=== PATIENT | male | born 1970 | race Caucasian/White ===

== ENCOUNTER 2017-01-10 01:41 | Emergency (ER) | payer SELFPAY ==
[2017-01-10 02:42] LABS: CALCIUM 8.4 mg/dL (8.5-10.1); CARBON DIOXIDE 31.4 mmol/L (21-32); CHLORIDE SERUM 103 mmol/L (98-107); CREATININE SERUM 0.7 mg/dL (0.7-1.3); GFR1 > 60 mL/min; GLUCOSE SERUM 101 mg/dL (74-106); POTASSIUM SERUM 3.8 mmol/L (3.5-5.1); SODIUM SERUM 130 mmol/L (136-145)
[2017-01-10 02:47] LABS: ALKALINE PHOSPHATASE 63 U/L (46-116); ALT/SGPT 38 U/L (16-63); AST/SGOT 27 U/L (15-37); BILIRUBIN TOTAL 0.22 mg/dL (0.20-1.00); TOTAL PROTEIN, SERUM 6.3 g/dL (6.4-8.2)
[2017-01-10 02:48] LABS: ALBUMIN 3.2 g/dL (3.4-5.0)
[2017-01-10 02:58] LABS: BASOPHIL % 0.2 % (0-2); PLATELET COUNT 246 x10^3mcL (130-400)
[2017-01-10 05:53] VITALS: BP 100/61
== END 2017-01-10 05:53 | disposition home or self-care (01) ==
LOC: ED 01:41
PROVIDERS: Emergency Medicine
DX: R10.9 Unspecified abdominal pain (principal); R11.2 Nausea with vomiting, unspecified; R53.83 Other fatigue; M54.9 Dorsalgia, unspecified
CPT/HCPCS: J1170; J1200; J2765; J7030

== ENCOUNTER 2017-04-14 04:27 | Emergency (ER) | payer OTHER ==
[~2017-04-14] VITALS: Ht 180.3 cm; Wt 77.6 kg
[2017-04-14 04:42] VITALS: Ht 180.3 cm; Wt 77.6 kg
[2017-04-14 06:32] LABS: CALCIUM 8.7 mg/dL (8.5-10.1); CARBON DIOXIDE 26.3 mmol/L (21-32); CHLORIDE SERUM 107 mmol/L (98-107); CREATININE SERUM 0.8 mg/dL (0.7-1.3); GFR1 > 60 mL/min; GLUCOSE SERUM 85 mg/dL (74-106); POTASSIUM SERUM 4.3 mmol/L (3.5-5.1); SODIUM SERUM 141 mmol/L (136-145)
[2017-04-14 06:43] VITALS: BP 130/72
[2017-04-14 06:45] LABS: FREE T4 1.08 ng/dL (0.76-1.46)
== END 2017-04-14 06:44 | disposition home or self-care (01) ==
LOC: ED 04:27
PROVIDERS: Emergency Medicine
DX: H10.9 Unspecified conjunctivitis (principal); M79.1 Myalgia
CPT/HCPCS: 36415; 84439; 87804; J1885